=== PATIENT | female | born 2000 | race Two or more races ===

== ENCOUNTER 2021-11-02 15:52 | Inpatient (IN) | payer MEDICAID ==
[~2021-11-02] VITALS: Ht 157.5 cm; Wt 69.9 kg
[2021-11-02] MEDS ORDERED: ONDANSETRON HCL 4 MG/2 ML VIAL IV ONE (17:00)
[2021-11-02] MEDS ORDERED: SODIUM CHLORIDE 0.9% 1,000 ML IV ONE (17:00)
[2021-11-02 18:39] LABS: Albumin 3.8 g/dL (3.4-5.0); Anion Gap 8 (5-15); Calcium 8.5 mg/dL (8.5-10.1); Carbon Dioxide 23 mmol/L (21-32); Chloride 111 mmol/L (98-107); Glucose 109 mg/dL (74-106); Potassium 3.8 mmol/L (3.5-5.1); Sodium 142 mmol/L (136-145)
[2021-11-02 18:42] LABS: Alanine Aminotransferase 751 U/L (13-56); Aspartate Aminotransferase 648 U/L (15-37); Bilirubin, Total 4.2 mg/dL (0.2-1.0); GFR African American 139 mL/min; GFR Non-African American 115 mL/min; Total Protein 7.6 g/dL (6.4-8.2)
[2021-11-02 18:47] LABS: Alkaline Phosphatase 283 U/L (45-117)
[2021-11-02 18:50] LABS: Lipase > 30000 U/L (73-393)
[2021-11-02 19:13] LABS: BUN/Creatinine Ratio 11.8; Blood Urea Nitrogen 8 mg/dL (7-18)
[2021-11-02 19:15] LABS: Basophils # (auto) 0.1 10 ^3/uL (0-0.2); Basophils % (auto) 0.4 % (0.0-2.0); Eosinophils # (auto) 0 10 ^3/uL (0-0.8); Eosinophils % (auto) 0.1 % (0.0-7.0); Hematocrit 40.2 % (36.0-46.0); Hemoglobin 12.9 g/dL (12.2-16.2); Lymphocytes # (auto) 0.8 10 ^3/uL (0.4-5.4); Lymphocytes % (auto) 4.8 % (10.0-50.0); Mean Corpuscular Hgb Conc. 32.1 g/dL (32.0-36.0); Mean Corpuscular Volume 81.2 fL (80.0-100.0); Monocytes # (auto) 0.9 10 ^3/uL (0-1.3); Monocytes % (auto) 5.5 % (0.0-12.0); Neutrophils # (auto) 14.3 10 ^3/uL (1.6-8.6); Neutrophils % (auto) 89.2 % (37.0-80.0); Red Blood Cells 4.95 10^6/uL (4.0-5.20); Red Cell Distribution Width 15.9 % (11.8-14.3)
[2021-11-02] MEDS ORDERED: fentaNYL CITRATE 100 MCG/2 ML VL IV ONE (19:45)
[2021-11-02] MEDS ORDERED: PIPERACILLIN-TAZOB 3.375GM 100 ML IV ONE (20:15)
[2021-11-02] MEDS ORDERED: cefTRIAXone 1GM/50ML D5W 50 ML IV ONE (21:15)
[2021-11-02] MEDS ORDERED: D5W/SOD CHL 0.45% 1,000 ML IV SCH (21:15)
[2021-11-02] MEDS ORDERED: IBUPROFEN 400 MG TAB PO PRN (21:15)
[2021-11-02] MEDS: FAMOTIDINE (10MG/ML) 2ML VL IV SCH (21:41)
[2021-11-02] MEDS ORDERED: NITROGLYCERIN 0.4 MG SL TAB SL PRN (21:45)
[2021-11-02] MEDS ORDERED: MORPHINE SULFATE INJ 2 MG/ml SYRG IV PRN (21:45)
[2021-11-02] MEDS: metroNIDAZOLE 500MG/100ML 100 ML IV SCH (22:05)
[2021-11-03] MEDS ORDERED: TRAM-300 PO (00:02)
[2021-11-03] MEDS: ONDANSETRON HCL 4 MG/2 ML VIAL IV PRN ×3 (00:45→12:55)
[2021-11-03] MEDS: MORPHINE SULFATE INJ 2 MG/ml SYRG IV PRN ×2 (00:46→04:45)
[2021-11-03 04:54] VITALS: BP 121/71
[2021-11-03] MEDS: metroNIDAZOLE 500MG/100ML 100 ML IV SCH ×3 (05:23→21:30)
[2021-11-03] MEDS ORDERED: HYDROmorphone HCL 2 MG/ML VL/or syr IV PRN (06:15)
[2021-11-03 06:49] LABS: Eosinophils # (auto) 0 10 ^3/uL (0-0.8); Eosinophils % (auto) 0.2 % (0.0-7.0); Hematocrit 35.2 % (36.0-46.0); Hemoglobin 11.5 g/dL (12.2-16.2); Mean Corpuscular Hgb Conc. 32.6 g/dL (32.0-36.0); Monocytes # (auto) 0.7 10 ^3/uL (0-1.3)
[2021-11-03 06:52] LABS: Basophils # (auto) 0 10 ^3/uL (0-0.2); Basophils % (auto) 0.4 % (0.0-2.0); Lymphocytes # (auto) 1.2 10 ^3/uL (0.4-5.4); Lymphocytes % (auto) 10.3 % (10.0-50.0); Mean Corpuscular Volume 79.9 fL (80.0-100.0); Monocytes % (auto) 6.2 % (0.0-12.0); Neutrophils # (auto) 9.7 10 ^3/uL (1.6-8.6); Neutrophils % (auto) 82.9 % (37.0-80.0); Red Blood Cells 4.41 10^6/uL (4.0-5.20); Red Cell Distribution Width 15.5 % (11.8-14.3); White Blood Cell 11.7 10^3/uL (4.4-10.8)
[2021-11-03 07:13] LABS: Potassium 3.1 mmol/L (3.5-5.1)
[2021-11-03 07:17] LABS: Albumin 3.1 g/dL (3.4-5.0); BUN/Creatinine Ratio 9.7; Calcium 7.7 mg/dL (8.5-10.1)
[2021-11-03 07:20] LABS: Bilirubin, Total 1.2 mg/dL (0.2-1.0); Total Protein 6.2 g/dL (6.4-8.2)
[2021-11-03 08:33] LABS: Urine Bacteria NONE SEEN /hpf (None Seen); Urine Blood Negative /uL (Negative); Urine Specific Gravity 1.016 (1.001-1.035); Urine WBC 25 /hpf (0 - 5)
[2021-11-03 09:09] VITALS: BP 116/74
[2021-11-03] MEDS: cefTRIAXone 1GM/50ML D5W 50 ML IV SCH (10:07)
[2021-11-03] MEDS: FAMOTIDINE (10MG/ML) 2ML VL IV SCH (10:07)
[2021-11-03] MEDS ORDERED: POTASSIUM CHLORIDE 40 MEQ, LIDOCAINE 1% (LOCAL ANESTH.) 4 ML in SODIUM CHL 0.9% 250 ML IV ONE (12:00)
[2021-11-03 12:52] VITALS: BP 121/75
[2021-11-03] MEDS: KETOROLAC TROMETH 30 MG/ML 1ML VIAL IV PRN ×2 (15:44→21:37)
[2021-11-03] MEDS: D5W/SOD CHL 0.45% 1,000 ML IV SCH (16:28)
[2021-11-03 16:37] VITALS: BP 104/62
[2021-11-03 22:00] VITALS: BP 101/67
[2021-11-04] MEDS: D5W/SOD CHL 0.45% 1,000 ML IV SCH ×4 (01:20→16:12)
[2021-11-04 05:00] VITALS: BP 107/50
[2021-11-04] MEDS: metroNIDAZOLE 500MG/100ML 100 ML IV SCH ×2 (05:21→16:11)
[2021-11-04 05:56] LABS: Basophils # (auto) 0 10 ^3/uL (0-0.2); Basophils % (auto) 0.2 % (0.0-2.0); Eosinophils # (auto) 0 10 ^3/uL (0-0.8); Eosinophils % (auto) 0.2 % (0.0-7.0); Hematocrit 32.7 % (36.0-46.0); Hemoglobin 11.1 g/dL (12.2-16.2); Lymphocytes # (auto) 1.2 10 ^3/uL (0.4-5.4); Lymphocytes % (auto) 12.1 % (10.0-50.0); Mean Corpuscular Hemoglobin 27.3 pg (28.0-32.0); Mean Corpuscular Hgb Conc. 33.8 g/dL (32.0-36.0); Mean Corpuscular Volume 80.6 fL (80.0-100.0); Monocytes # (auto) 0.8 10 ^3/uL (0-1.3); Monocytes % (auto) 7.8 % (0.0-12.0); Neutrophils # (auto) 8.2 10 ^3/uL (1.6-8.6); Neutrophils % (auto) 79.7 % (37.0-80.0); Red Blood Cells 4.06 10^6/uL (4.0-5.20); Red Cell Distribution Width 15.8 % (11.8-14.3); White Blood Cell 10.2 10^3/uL (4.4-10.8)
[2021-11-04 06:14] LABS: Magnesium 1.3 mg/dL (1.6-2.6)
[2021-11-04 06:20] LABS: Albumin 2.9 g/dL (3.4-5.0); BUN/Creatinine Ratio 6.8; Total Protein 6.2 g/dL (6.4-8.2)
[2021-11-04 06:28] LABS: Potassium 2.9 mmol/L (3.5-5.1)
[2021-11-04] MEDS ORDERED: POTASSIUM CHL 20MEQ/100ML 100 ML IV SCH (07:00)
[2021-11-04 09:00] VITALS: BP 106/66
[2021-11-04] MEDS: MAGNESIUM SULFATE 1GM/100ML 100 ML IV SCH ×3 (11:33→13:30)
[2021-11-04] MEDS: cefTRIAXone 1GM/50ML D5W 50 ML IV SCH (11:34)
[2021-11-04] MEDS: FAMOTIDINE (10MG/ML) 2ML VL IV SCH (11:34)
[2021-11-04] MEDS: KETOROLAC TROMETH 30 MG/ML 1ML VIAL IV PRN ×2 (12:33→21:31)
[2021-11-04 13:00] VITALS: BP 109/63
[2021-11-04 17:00] VITALS: BP 107/69
[2021-11-04] MEDS: POTASSIUM CHL 20MEQ/100ML 100 ML IV SCH ×2 (17:59→20:50)
[2021-11-04 22:00] VITALS: BP 129/69
[2021-11-05] MEDS: D5W/SOD CHL 0.45% 1,000 ML IV SCH ×4 (00:09→15:13)
[2021-11-05] MEDS: metroNIDAZOLE 500MG/100ML 100 ML IV SCH ×2 (00:41→07:03)
[2021-11-05] MEDS: POTASSIUM CHL 20MEQ/100ML 100 ML IV SCH (02:25)
[2021-11-05] MEDS ORDERED: POTASSIUM CHL 20MEQ/100ML 100 ML IV SCH (02:30)
[2021-11-05 05:00] VITALS: BP 96/52
[2021-11-05 06:44] LABS: Potassium 3.5 mmol/L (3.5-5.1)
[2021-11-05 06:50] LABS: Albumin 2.8 g/dL (3.4-5.0); Calcium 7.7 mg/dL (8.5-10.1); Magnesium 2.1 mg/dL (1.6-2.6)
[2021-11-05 07:01] LABS: Bilirubin, Total 0.8 mg/dL (0.2-1.0); Total Protein 5.9 g/dL (6.4-8.2)
[2021-11-05 08:05] VITALS: BP 119/61
[2021-11-05] MEDS: FAMOTIDINE (10MG/ML) 2ML VL IV SCH (09:22)
[2021-11-05] MEDS: cefTRIAXone 1GM/50ML D5W 50 ML IV SCH (09:22)
[2021-11-05 11:55] VITALS: BP 106/67
[2021-11-05] MEDS ORDERED: POTASSIUM CHLORIDE 40 MEQ, LIDOCAINE 1% (LOCAL ANESTH.) 4 ML in SODIUM CHL 0.9% 250 ML IV ONE (14:00)
[2021-11-05 17:00] VITALS: BP 115/75
[2021-11-05 22:00] VITALS: BP 117/69
[2021-11-06] VITALS (13 sets, daily range): BP systolic 102–131; BP diastolic 53–79
[2021-11-06 05:32] LABS: INR 1.03 (0.9-1.15)
[2021-11-06 05:42] LABS: BUN/Creatinine Ratio 4.3; Calcium 8.3 mg/dL (8.5-10.1); Potassium 3.4 mmol/L (3.5-5.1)
[2021-11-06] MEDS: D5W/SOD CHL 0.45% 1,000 ML IV SCH ×2 (05:43→20:06)
[2021-11-06 05:45] LABS: Bilirubin, Total 0.9 mg/dL (0.2-1.0); Total Protein 6.3 g/dL (6.4-8.2)
[2021-11-06] MEDS: FAMOTIDINE (10MG/ML) 2ML VL IV SCH (10:58)
[2021-11-06] MEDS ORDERED: PROPOFOL 10 MG/ML 20 ML IV ONE (12:52)
[2021-11-06] MEDS ORDERED: SUCCINYLCHOLINE CHLORIDE 20 MG/ML 10ML VIAL IV ONE (12:52)
[2021-11-06] MEDS ORDERED: ceFAZolin 1GM/50ML 50 ML IV ONE (17:15)
[2021-11-06] MEDS ORDERED: SODIUM CHLORIDE LOCK 10 ML ONE (17:17)
[2021-11-06] MEDS ORDERED: fentaNYL CITRATE 100 MCG/2 ML VL ONE (17:17)
[2021-11-06] MEDS ORDERED: ROCURONIUM 10MG/ML 10ML VIAL IV ONE (17:17)
[2021-11-06] MEDS ORDERED: ONDANSETRON HCL 4 MG/2 ML VIAL ONE (17:17)
[2021-11-06] MEDS ORDERED: MEPERIDINE HCL (25 MG/ML) 1ML VIAL ONE (17:17)
[2021-11-06] MEDS ORDERED: NEOSTIGMINE 1 MG/ML INJ (10mg/10ML VIAL) ONE (17:17)
[2021-11-06] MEDS ORDERED: MIDAZOLAM HCL 2MG/2ML 2ml VIAL (1mg/ml) ONE (17:17)
[2021-11-06] MEDS ORDERED: GLYCOPYRROLATE 0.2 MG/ML 1ML VIAL ONE (17:17)
[2021-11-06] MEDS ORDERED: DexAMETHasone SOD PHOS 10MG/1ML VIAL INJ ONE (17:17)
[2021-11-06] MEDS ORDERED: ceFAZolin 1GM VL ONE (17:34)
[2021-11-06] MEDS ORDERED: KETOROLAC TROMETH 30 MG/ML 1ML VIAL IV ONE (18:00)
[2021-11-06] MEDS ORDERED: fentaNYL CITRATE 100 MCG/2 ML VL IV PRN (18:00)
[2021-11-06] MEDS ORDERED: METOCLOPRAMIDE HCL 5MG/ml INJ 2ml VIAL IV PRN (18:00)
[2021-11-06] MEDS ORDERED: HYDROmorphone HCL 2 MG/ML VL/or syr IV PRN ×2 (18:00)
[2021-11-06] MEDS ORDERED: MORPHINE SULFATE 4 MG/ML SYR/VIAL IV PRN (18:00)
[2021-11-07 05:00] VITALS: BP 118/78
[2021-11-07] MEDS: D5W/SOD CHL 0.45% 1,000 ML IV SCH (08:39)
[2021-11-07 09:00] VITALS: BP 121/86
[2021-11-07] MEDS ORDERED: TRAM-300 PO (09:16)
[2021-11-07] MEDS: FAMOTIDINE (10MG/ML) 2ML VL IV SCH (10:00)
[2021-11-07 10:52] VITALS: BP 121/86
== END 2021-11-07 12:53 | disposition home or self-care (01) | DRG 263 ==
LOC: ER 15:52 → WEST WING 21:36
PROVIDERS: ADMIT Nurse Practitioner Family; ATTEND Hospitalist
PROC: 0FT44ZZ Resection of Gallbladder, Percutaneous Endoscopic Approach (ICD-10-PCS; principal; 2021-11-06 17:23)
DX: K85.10 Biliary acute pancreatitis without necrosis or infection (principal); K76.0 Fatty (change of) liver, not elsewhere classified; K80.00 Calculus of gallbladder with acute cholecystitis without obstruction; D72.829 Elevated white blood cell count, unspecified; R79.89 Other specified abnormal findings of blood chemistry; Z20.822 Contact with and (suspected) exposure to COVID-19
CPT/HCPCS: 36415; 74176; 74181; 76705; 78226; 80053; 80061; 81001; 82150; 83036; 83605; 83690; 83735; 84702; 85025; 85610; 96361; 96365; 96366; 96368; 96375; 99291; G0378; J0330; J0690; J0696; J1100; J1885; J2001; J2250; J2405; J2543; J2704; J3480; J3490; J7060

== ENCOUNTER 2022-07-01 12:33 | Emergency (ER) | payer MEDICAID ==
[~2022-07-01] VITALS: Ht 154.9 cm; Wt 74.0 kg
[~2022-07-01 12:33] MED LIST: TRAM-300 PO
[2022-07-01] MEDS ORDERED: PENI500T2 PO (16:00)
[2022-07-01] MEDS ORDERED: ACET1CAP14 PO (16:01)
[2022-07-01] MEDS ORDERED: BENZ1LOZ3 MT (16:01)
[2022-07-01] MEDS ORDERED: ACETAMINOPHEN 500 MG TAB PO ONE (16:15)
[2022-07-01] MEDS ORDERED: cefTRIAXone SOD 1,000 MG VL IM ONE (16:15)
[2022-07-01 16:54] VITALS: BP 118/72
[2022-07-01] MEDS ORDERED: ONDA-144 PO (16:58)
== END 2022-07-01 16:54 | disposition home or self-care (01) ==
LOC: ER 12:33
DX: J03.80 Acute tonsillitis due to other specified organisms (principal); Z20.822 Contact with and (suspected) exposure to COVID-19; Z88.0 Allergy status to penicillin; Z88.6 Allergy status to analgesic agent; Z90.49 Acquired absence of other specified parts of digestive tract
CPT/HCPCS: 36415; 87426; 87804; 96372; 99283; J0696

== ENCOUNTER 2022-11-28 22:55 | Emergency (ER) | payer MEDICAID ==
[~2022-11-28] VITALS: Ht 157.5 cm; Wt 74.0 kg
[~2022-11-28 22:55] MED LIST changes: +ACET1CAP14 PO; +BENZ1LOZ12 MT; +ONDA-144 PO; +PENI500T2 PO
[2022-11-29] MEDS ORDERED: IBUP-1454 PO (00:41)
[2022-11-29] MEDS ORDERED: DIC250C PO (00:41)
[2022-11-29 00:52] VITALS: BP 103/69; PULSE 81; RESP 18; TEMP 98; O2SAT 100
== END 2022-11-29 00:52 | disposition home or self-care (01) ==
LOC: ER 22:59
DX: N61.1 Abscess of the breast and nipple (principal); Z79.899 Other long term (current) drug therapy
CPT/HCPCS: 96372